=== PATIENT | female | born 1985 | race Caucasian/White ===

== ENCOUNTER 2016-09-26 10:05 | Emergency (ER) | payer OTHER ==
[~2016-09-26] VITALS: Ht 152.4 cm; Wt 63.6 kg
[~2016-09-26 10:05] MED LIST: BACTRIM DS 8001 TAB; BACTRIM DS 8001 TAB PO; CEPHALEXIN500 M1 PO; CLEOCIN HCL300 MG PO; MOTRIN 800800 MG/TAB PO; NAPROSYN500 MG PO; PREDNISONE20 MG PO; TYLENOL W/COD1 UDTAB PO
[2016-09-26 10:06] VITALS: BP 118/63; PULSE 95; TEMP 98.7
[2016-09-26] MEDS ORDERED: NORCO 325 MG-51 TAB PO (10:11)
[2016-09-26] MEDS ORDERED: BIRTH CONTROL PO (10:12)
[2016-09-26] MEDS ORDERED: ZOFRAN 4MG T4 MG/TAB PO (10:56)
== END 2016-09-26 11:24 | disposition home or self-care (01) ==
LOC: COL.ER 10:05
DX: G43.909 Migraine, unspecified, not intractable, without status migrainosus (principal)

== ENCOUNTER 2018-01-08 19:27 | Emergency (ER) | payer OTHER ==
[~2018-01-08] VITALS: Ht 152.4 cm; Wt 59.1 kg
[~2018-01-08 19:27] MED LIST changes: +BIRTH CONTROL PO; +NORCO 325 MG-51 TAB PO; +ZOFRAN 4MG T4 MG/TAB PO
[2018-01-08 19:30] VITALS: BP 126/79; TEMP 98
[2018-01-08] MEDS ORDERED: ATIVAN 1MG T1 MG/TAB PO (21:32)
[2018-01-08] MEDS ORDERED: ZOFRAN ODT4 MG PO (21:32)
[2018-01-08 21:56] VITALS: PULSE 104
== END 2018-01-08 21:57 | disposition home or self-care (01) ==
LOC: COL.ER 19:27
DX: F11.23 Opioid dependence with withdrawal (principal); F17.210 Nicotine dependence, cigarettes, uncomplicated

== ENCOUNTER 2018-01-11 15:41 | Emergency (ER) | payer OTHER ==
[~2018-01-11] VITALS: Ht 152.4 cm; Wt 56.8 kg
[~2018-01-11 15:41] MED LIST changes: +ATIVAN 1MG T1 MG/TAB PO; +ZOFRAN ODT4 MG PO
[2018-01-11 15:44] VITALS: TEMP 98.9
[2018-01-11] MEDS ORDERED: ADVIL200 MG PO (16:05)
[2018-01-11] MEDS ORDERED: LYRICA 150MG C150 MG PO (16:05)
[2018-01-11 16:18] LABS: COLLECTION METHOD CLEAN CATCH
[2018-01-11 16:25] LABS: MUCOUS Present /lpf; PH 5 (5-8); URINE APPEARANCE Clear; URINE BACTERIA None Seen /hpf; URINE BILIRUBIN Negative (NEGATIVE); URINE BLOOD Negative (NEGATIVE); URINE COLOR Yellow; URINE GLUCOSE Negative (NEGATIVE); URINE KETONE Trace (NEGATIVE); URINE LEUKOCYTE ESTERASE Negative (NEGATIVE); URINE NITRATE Negative (NEGATIVE); URINE PROTEIN(semi-quant) Negative (NEGATIVE); URINE RBC 0-2 /hpf; URINE UROBILINOGEN Negative (NEGATIVE)
[2018-01-11 16:35] VITALS: BP 120/79
[2018-01-11 16:37] LABS: BASO # 0.1 (0.0-0.2); BASO % 0.6 % (0.0-2.0); EOS # 0.1 (0.0-0.7); EOS % 0.8 % (0-4.0); GRAN # 7.3 (1.4-6.5); GRAN % 65.8 % (42.2-75.2); HEMATOCRIT 46.8 % (37.0-47.0); HEMOGLOBIN 15.8 g/dl (12.5-16.0); LYMPH # 2.9 (1.2-3.4); LYMPH % 25.8 % (20.0-51.0); MEAN CELL VOLUME 99 fl (80.0-100.0); MEAN CORPUSCULAR HEMOGLOBIN 33 pg (27.0-31.0); MEAN CORPUSCULAR HGB CONC 34 g/dl (33.0-37.0); MEAN PLATELET VOLUME 9.3 fl (7.4-10.4); MONO # 0.7 (0.1-0.6); MONO % 6.6 % (1.7-9.3); PLATELET COUNT 345 K/mm3 (130-400); RED BLOOD COUNT 4.75 M/mm3 (4.10-5.30); REDCELL DISTRIBUTION WIDTH-CV 14.6 % (11.5-14.5)
[2018-01-11 16:37] LABS: TRICYCLIC ANTIDEPRESS URINE NEGATIVE
[2018-01-11 16:50] LABS: ALANINE AMINOTRANSFERASE 24 U/L (9-52); ALBUMIN 4.6 gm/dL (3.5-5.0); ALKALINE PHOSPHATASE 61 U/L (50-136); ANION GAP 13 mmol/L (7-16); AST,SGOT 25 U/L (15-37); BILIRUBIN,TOTAL 0.4 mg/dL (0.0-1.0); BLOOD UREA NITROGEN 8 mg/dL (7-17); CALCIUM 9.6 mg/dL (8.4-10.2); CARBON DIOXIDE 26 mmol/L (22-30); CHLORIDE 103 mmol/L (98-107); CREATININE, serum 0.81 mg/dL (0.52-1.25); GLUCOSE 88 mg/dL (74-106); LIPASE 38 U/L (23-300); POTASSIUM 3.7 mmol/L (3.4-5.0); SODIUM 142 mmol/L (137-145); TOTAL PROTEIN 8.3 gm/dL (6.4-8.2)
[2018-01-11 16:52] LABS: ACETAMINOPHEN < 10 ug/mL (10-30); ALCOHOL(ethanol),MEDICAL < 10 mg/dL; C-REACTIVE PROTEIN < 0.5 mg/dL (0.0-0.9); SALICYLATE < 1.0 mg/dL
[2018-01-11 20:05] VITALS: PULSE 81
== END 2018-01-11 20:05 | disposition home or self-care (01) ==
LOC: COL.ER 15:41
PROVIDERS: Emergency Medicine
DX: F32.9 Major depressive disorder, single episode, unspecified (principal); F11.23 Opioid dependence with withdrawal; F41.9 Anxiety disorder, unspecified; F17.210 Nicotine dependence, cigarettes, uncomplicated
CPT/HCPCS: J2405; J7030

== ENCOUNTER 2018-07-24 17:50 | Emergency (ER) | payer OTHER ==
[~2018-07-24] VITALS: Ht 152.4 cm; Wt 59.1 kg
[~2018-07-24 17:50] MED LIST changes: +ADVIL200 MG PO; +LYRICA 150MG C150 MG PO
[2018-07-24 17:59] VITALS: BP 132/91; TEMP 97.6
[2018-07-24] MEDS ORDERED: ATARAX 10MG10 MG/TAB PO (18:41)
[2018-07-24] MEDS ORDERED: ADDERALL XR25 MG PO (18:42)
[2018-07-24 19:00] VITALS: PULSE 100
== END 2018-07-24 19:00 | disposition home or self-care (01) ==
LOC: COL.ER 17:50
DX: M79.18 Myalgia, other site (principal); F41.9 Anxiety disorder, unspecified; F90.9 Attention-deficit hyperactivity disorder, unspecified type; F17.210 Nicotine dependence, cigarettes, uncomplicated; X50.1XXA Overexertion from prolonged static or awkward postures, initial encounter; Y99.0 Civilian activity done for income or pay

== ENCOUNTER 2018-08-11 19:11 | Emergency (ER) | payer OTHER ==
[~2018-08-11] VITALS: Ht 152.4 cm; Wt 61.4 kg
[~2018-08-11 19:11] MED LIST changes: +ADDERALL XR25 MG PO; +ATARAX 10MG10 MG/TAB PO
[2018-08-11] MEDS ORDERED: DOXYCYCLINE 10100 MG PO (21:17)
[2018-08-11] MEDS ORDERED: NORCO 325 MG-51 TAB PO (21:17)
[2018-08-11 21:33] VITALS: BP 122/81; PULSE 94; TEMP 99.1
== END 2018-08-11 21:51 | disposition home or self-care (01) ==
LOC: COL.ER 19:11
DX: L08.9 Local infection of the skin and subcutaneous tissue, unspecified (principal); J40 Bronchitis, not specified as acute or chronic; J11.89 Influenza due to unidentified influenza virus with other manifestations; F17.210 Nicotine dependence, cigarettes, uncomplicated; F90.9 Attention-deficit hyperactivity disorder, unspecified type

== ENCOUNTER 2019-01-26 09:28 | Outpatient (CLI) | payer OTHER ==
[~2019-01-26] VITALS: Wt 70.5 kg
[~2019-01-26 09:28] MED LIST changes: +DOXYCYCLINE 10100 MG PO
--- NOTE | 2019-01-26 09:40 | NUR ---
Patient to [facility]4 via wheelchair with spouse, changed into gown, FHR/TOCO monitors placed and explained. Patient states " the last couple of days I have had a terrible sharp/tearing/popping pain in pelvic area, I have had a very uncomfortable and had this problem before and Dr. Jensen gave me 9 Norcos to take for the rest of and I have taken all of them, we are feeling very judged and not heard from Dr. Jensen, and not even seen her in the office" Patient denies any contractions/leaking of fluid/vaginal bleeding. Plan of care discussed. Dr. Palacios notified and updated and orders for a UA and SVE. 1005: SVE-fingertip/-3 and patient tolerates well. 1040: Dr Palacios called with update and update on patient feeling towards Dr. Jensen and patient states she wants to switch physicians. Orders for patient to go home and to call and make appt at office. 1055: Patient off monitor and gone over instructions/ patient and spouse very upset with plan and situation with Dr. Jensen. This RN tells patient and spouse that if they need a better fit for a physician to call office and speak with them. Patient understands and signs discharge papers. 1105: Patient ambulatory off unit with spouse.
[2019-01-26] MEDS ORDERED: TYLENOL 500MG500 MG PO (10:15)
[2019-01-26] MEDS ORDERED: MOTRIN 200200 MG/TAB PO (10:16)
[2019-01-26] MEDS ORDERED: PRENATAL MVI (10:16)
[2019-01-26 10:30] VITALS: BP 102/66; PULSE 94; TEMP 98
[2019-01-26 10:30] LABS: COLLECTION METHOD CLEAN CATCH
[2019-01-26 10:36] LABS: PH 6 (5-8); SQUAMOUS EPITHELIAL 0-2 /hpf; URINE APPEARANCE Clear; URINE BACTERIA Rare /hpf; URINE BILIRUBIN Negative (NEGATIVE); URINE BLOOD Negative (NEGATIVE); URINE COLOR Yellow; URINE GLUCOSE Negative (NEGATIVE); URINE KETONE Negative (NEGATIVE); URINE LEUKOCYTE ESTERASE Negative (NEGATIVE); URINE NITRATE Negative (NEGATIVE); URINE PROTEIN(semi-quant) Negative (NEGATIVE); URINE RBC 0-2 /hpf; URINE UROBILINOGEN Negative (NEGATIVE); URINE WBC 0-2 /hpf
--- NOTE | 2019-01-26 10:50 | NUR ---
Kalin KATZ and Chu KATZ at nurses station and reviewing strip and both agree that FHR strip is appropriate for patient to be discharged
[2019-01-26 10:55] VITALS: BP 99/66; PULSE 86
== END 2019-01-26 11:05 | disposition home or self-care (01) ==
LOC: COL.ER 09:28 → LDRO 09:28 → EDSTATUS 09:57 → LDR 09:59 → LDRO 11:05
PROVIDERS: Obstetrics & Gynecology
DX: O99.89 Other specified diseases and conditions complicating pregnancy, childbirth and the puerperium (principal); R10.2 Pelvic and perineal pain; Z3A.27 27 weeks gestation of pregnancy
CPT/HCPCS: OP